=== PATIENT | male | born 1950 | race African-American/Black ===

== ENCOUNTER 2018-11-07 20:58 | Observation (INO) ==
[2018-11-07 22:02] LABS: Basophils # 0.1 10*3/uL (0.0-0.2); Basophils % 1.4 % (0.0-0.8); Eosinophils # 0.1 10*3/uL (0.0-0.87); Eosinophils % 2.6 % (0.00-10.9); Hematocrit 39.3 VOL% (42.0-52.0); Hemoglobin 12.7 GM/DL (14.0-18.0); Immature Granulocytes % 0.2 %; Immature Granulocytes Absolute 0.01 #; Lymphocytes # 2.3 10*3/uL (1.4-4.0); Lymphocytes % 44.2 % (21.2-54.2); Mean Corpuscular HGB Conc 32.3 GM/DL (32-36); Mean Corpuscular Hemoglobin 28 PG (27-34); Mean Corpuscular Volume 85.6 FL (87-102); Mean Platelet Volume 12.2 FL (9.6-12.0); Monocytes # 0.5 10*3/uL (0.11-0.8); Monocytes % 10.4 % (1.7-12.7); Neutrophils # 2.1 10*3/uL (1.4-7.4); Neutrophils % 41.2 % (38.7-73.9); Platelet Count 203 T/CUMM (130-400); Red Blood Count 4.59 MC/CUMM (3.8-5.5); Red Cell Distribution Width 14.2 % (9.3-17.3); White Blood Count 5.1 T/CUMM (4-12)
[2018-11-07 22:07] LABS: INR 0.9; PT Patient Result 10.3 SECS
[2018-11-07 22:16] LABS: Albumin 3.3 G/DL (3.4-5.0); Bilirubin,Total 0.4 MG/DL (0.2-1.0); Calcium 8.5 MG/DL (8.5-10.1); Osmolality,Calculated 277.1 MOS/KG (273-304); Potassium 5.5 MMOL/L (3.5-5.1); Total Protein 7.5 G/DL (6.4-8.3)
[2018-11-07 23:56] LABS: Apearance,Urine CLEAR (Clear); Bacteria,Urine Occasional /HPF (Few); Bilirubin,Urine Negative (Negative); Blood, Urine Negative (Negative); Glucose,Urine (UA) Negative (Negative); Ketones,Urine Negative (Negative); Nitrite,Urine Negative (Negative); Protein,Urine Negative; RBC,Urine 1 /HPF (0-4); Urine Color Yellow (Yellow); Urine Specific Gravity 1.006 (1.001-1.035); Urine Urobilinogen < 2.0 EU/DL (0.2-1.0); WBC,Urine 1 /HPF (0-6)
[2018-11-08] MEDS ORDERED: DEXTROSE 50% 25 GM/50 ML VIAL IV PRN (00:06)
[2018-11-08] MEDS ORDERED: GLUCAGON 1 MG VIAL IM PRN ×2 (00:06→00:11)
[2018-11-08] MEDS ORDERED: ONDANSETRON 4 MG/2 ML VIAL IV PRN (00:06)
[2018-11-08] MEDS ORDERED: DEXTROSE 50% 25 GM/50 ML SYRINGE IV PRN (00:11)
[2018-11-08] MEDS ORDERED: SODIUM POLYSTYRENE SULFATE 15 GM/60 ML BOTTLE PO STA (00:25)
[2018-11-08] MEDS ORDERED: SODIUM CHLORIDE 0.9% 1,000 ML IV SCH ×3 (00:30)
[2018-11-08] MEDS: SODIUM CHLORIDE 0.9% 1,000 ML IV SCH ×2 (01:50→15:59)
[2018-11-08] MEDS: LOSARTAN 50 MG TABLET PO SCH (08:24)
[2018-11-08] MEDS: INSULIN REGULAR 100 UNIT/ML SUBCUT SCH ×4 (08:24→21:27)
[2018-11-08] MEDS: ENOXAPARIN 40 MG/0.4 ML SYRINGE SUBCUT SCH (08:24)
[2018-11-08] MEDS: PANTOPRAZOLE 40 MG TABLET PO SCH (08:25)
[2018-11-08] MEDS ORDERED: LOSARTAN 50 MG TABLET PO SCH (09:00)
[2018-11-08] MEDS: hydrALAZINE 25 MG TABLET PO SCH ×2 (14:24→21:27)
[2018-11-08] MEDS: DORZOLAMIDE/TIMOLOL OPH SOLN 10 ML BOTTLE LEFT EYE SCH (21:28)
[2018-11-08] MEDS: LATANOPROST 0.005% OPH SOLN 2.5 ML BOTTLE BOTH EYES SCH (21:28)
[2018-11-09 04:13] LABS: Calcium 8.7 MG/DL (8.5-10.1); Osmolality,Calculated 282.7 MOS/KG (273-304)
[2018-11-09] MEDS: INSULIN REGULAR 100 UNIT/ML SUBCUT SCH ×4 (08:05→20:46)
[2018-11-09] MEDS: CLOPIDOGREL 75 MG TABLET PO SCH (08:39)
[2018-11-09] MEDS: PANTOPRAZOLE 40 MG TABLET PO SCH (08:39)
[2018-11-09] MEDS: ATORVASTATIN 80 MG TABLET PO SCH (08:40)
[2018-11-09] MEDS: ASPIRIN EC 81 MG TABLET PO SCH (08:40)
[2018-11-09] MEDS: hydrALAZINE 25 MG TABLET PO SCH ×3 (08:40→20:45)
[2018-11-09] MEDS: CHLORTHALIDONE 25 MG TABLET PO SCH (08:40)
[2018-11-09] MEDS: LOSARTAN 50 MG TABLET PO SCH (08:40)
[2018-11-09] MEDS: ENOXAPARIN 40 MG/0.4 ML SYRINGE SUBCUT SCH (08:41)
[2018-11-09] MEDS: DORZOLAMIDE/TIMOLOL OPH SOLN 10 ML BOTTLE LEFT EYE SCH ×2 (08:43→20:46)
[2018-11-09] MEDS: LATANOPROST 0.005% OPH SOLN 2.5 ML BOTTLE BOTH EYES SCH ×2 (08:43→20:46)
[2018-11-09] MEDS: CARVEDILOL 3.125 MG TABLET PO SCH ×2 (12:22→20:45)
[2018-11-10 07:57] VITALS: BP 152/83
[2018-11-10] MEDS: ATORVASTATIN 80 MG TABLET PO SCH (08:03)
[2018-11-10] MEDS: ENOXAPARIN 40 MG/0.4 ML SYRINGE SUBCUT SCH (08:03)
[2018-11-10] MEDS: INSULIN REGULAR 100 UNIT/ML SUBCUT SCH (08:03)
[2018-11-10] MEDS: LOSARTAN 50 MG TABLET PO SCH (08:03)
[2018-11-10] MEDS: hydrALAZINE 25 MG TABLET PO SCH (08:04)
[2018-11-10] MEDS: PANTOPRAZOLE 40 MG TABLET PO SCH (08:04)
[2018-11-10] MEDS: CARVEDILOL 3.125 MG TABLET PO SCH (08:04)
[2018-11-10] MEDS: CLOPIDOGREL 75 MG TABLET PO SCH (08:04)
[2018-11-10] MEDS: CHLORTHALIDONE 25 MG TABLET PO SCH (08:04)
[2018-11-10] MEDS: ASPIRIN EC 81 MG TABLET PO SCH (08:04)
[2018-11-10] MEDS: LATANOPROST 0.005% OPH SOLN 2.5 ML BOTTLE BOTH EYES SCH (08:10)
[2018-11-10] MEDS: DORZOLAMIDE/TIMOLOL OPH SOLN 10 ML BOTTLE LEFT EYE SCH (08:10)
== END 2018-11-10 11:06 | disposition home or self-care (01) ==
LOC: N.EDINP 20:58 → N.ED 20:58 → N.EDINP 11-08 01:05 → N.TELES 11-08 01:18
PROVIDERS: ADMIT Internal Medicine Cardiovascular Disease; ATTEND Internal Medicine Cardiovascular Disease